=== PATIENT | female | born 1955 | race Caucasian/White ===

== ENCOUNTER 2016-11-19 09:45 | Inpatient (IN) | payer BC ==
[~2016-11-19 09:45] MED LIST: Acetaminophen/oxyCODONE 325-5 MG Tab PO PRN; Bisacodyl 5 MG Tab PO PRN; Lactated Ringers 1,000 ML IV SCH; Lidocaine 1%/Sod Bicarbonate in NS 8.4% 1 ML Syringe IV PRN; Morphine 2 MG/ML Syringe IVPUSH PRN; Ondansetron 4 MG/2 ML SDV IVPUSH PRN; Sennosides 8.6 MG Tab PO PRN; Sodium Chloride 0.9% 10 ML Syringe FLUSH PRN
--- NOTE | 2016-11-19 11:25 | PCM.PREANE ---
Preanesthetic Assessment - Physical Assessment NPO Status Date: 11/18/16 NPO Status Time: 22:00 O2 Sat by Pulse Oximetry: 95 Respiratory Rate: 16 Vital Signs: Last Vital Signs Temp 99.7 F 11/19/16 10:10 Pulse 80 11/19/16 10:10 Resp 16 11/19/16 10:10 BP 139/89 11/19/16 10:10 Pulse Ox 95 11/19/16 10:10 Height: 5 ft 3 in Weight: 173 kg - Lab Values: Laboratory Last Values MRSA (PCR) Negative 10/26/16 10:15 - Allergies Allergies/Adverse Reactions: Allergies Allergy/AdvReac Type Severity Reaction Status Date / Time No Known Allergies Allergy Verified 11/19/16 10:38 PreAnesthesia Questionnaire HEENT History: Reports: None Cardiovascular History: Reports: None Respiratory History: Reports: None Gastrointestinal History: Reports: None Genitourinary History: Reports: None 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: Musculoskeletal History: Reports: Back pain, chronic, Osteoarthritis Other Musculoskeletal History: Trauma to right hip Neurological History: Reports: None Psychiatric History: Reports: None Endocrine/Metabolic History: Reports: None, Obesity/BMI 30+ Hematologic History: Reports: None Immunologic History: Reports: None Oncologic (Cancer) History: Reports: None Dermatologic History: Reports: None - Infectious Disease History Infectious Disease History: Reports: None - Past Surgical History HEENT Surgical History: Reports: None Cardiovascular Surgical History: Reports: None Respiratory Surgical History: Reports: None GI Surgical History: Reports: None Female Surgical History: Reports: Tubal ligation Endocrine Surgical History: Reports: None Neurological Surgical History: Reports: None Musculoskeletal Surgical History: Reports: None, Other (see below) (dislocated hip anesthesia) Oncologic Surgical History: Reports: None Dermatological Surgical History: Reports: None - SUBSTANCE USE Smoking Status *Q: Never Smoker Tobacco Use Within Last Twelve Months: No Second Hand Smoke Exposure: No Days Per Week of Alcohol Use: 0 Recreational Drug Use History: No - HOME MEDS Home Medications: Home Meds Celecoxib [CeleBREX] 200 mg PO BID 11/16/16 [History] - CURRENT (IN HOUSE) MEDS Current Meds: Current Medications Bisacodyl (Dulcolax) 5 mg PO DAILY PRN PRN Reason: Constipation Morphine Sulfate 8 mg/Epinephrine HCl 0.3 mg/Cefuroxime Sodium 750 mg/Ketorolac Tromethamine 30 mg/Sodium Chloride 27.9 ml 0 mg .XX ONETIME ONE Stop: 11/19/16 12:01 Cyclobenzaprine HCl (Flexeril) 10 mg PO TID PRN PRN Reason: Spasms Docusate Sodium (Colace) 100 mg PO BID [facility] Famotidine (Pepcid) 20 mg IVPUSH Q12H [facility] Lactated Ringer's (Ringers, Lactated) 1,000 mls @ 125 mls/hr IV ASDIRECTED [facility] Last Admin: 11/19/16 10:30 Dose: 125 mls/hr Cefazolin Sodium/Dextrose 2 gm (/ Premix) 50 mls @ 100 mls/hr IV Q8H [facility] Stop: 11/19/16 23:29 Lidocaine/Sodium Bicarbonate (Buffered Lidocaine 1% In Ns 8.4%) 0.25 ml IV ONETIME PRN PRN Reason: Prior to IV Start Last Admin: 11/19/16 10:30 Dose: 0.25 ml Magnesium Hydroxide (Milk Of Magnesia) 30 ml PO BID PRN PRN Reason: Constipation Morphine Sulfate (Morphine) 2 mg IVPUSH Q2H PRN PRN Reason: Breakthrough Pain Multivitamins (Thera) 1 each PO WITHBREAKFAST [facility] Naloxone HCl (Narcan) 0.1 mg IVPUSH Q5M PRN PRN Reason: Oversedation Stop: 11/19/16 14:16 Ondansetron HCl (Zofran) 4 mg IVPUSH Q6H PRN PRN Reason: Nausea/Vomiting Oxycodone/Acetaminophen (Percocet 325-5 Mg) 1 - 2 tab PO Q4H PRN PRN Reason: Pain Rivaroxaban (Xarelto) 10 mg PO DAILY [facility] Senna (Senna) 8.6 mg PO BID PRN PRN Reason: Constipation Sodium Chloride (Saline Flush) 10 ml FLUSH ASDIRECTED PRN PRN Reason: Keep Vein Open Preanesthetic Assessment - ANESTHESIA/TRANSFUSION/FAMILY HX Anesthesia/Transfusion History: No Prior Transfusion(s), Prior Anesthesia (no prob) Family History of Anesthesia Reaction: No - REVIEW OF SYSTEMS Constitutional: Reports: no symptoms 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 Respiratory: Reports: no symptoms Cardiovascular: Reports: no symptoms GI: Reports: no symptoms Other: Reports: None - PHYSICAL ASSESSMENT O2 Sat by Pulse Oximetry: 95 RR: 16 Vital Signs: Last Vital Signs Temp 99.7 F 11/19/16 10:10 Pulse 80 11/19/16 10:10 Resp 16 11/19/16 10:10 BP 139/89 11/19/16 10:10 Pulse Ox 95 11/19/16 10:10 Height: 5 ft 3 in Weight: 78 kg NPO Status Date: 11/18/16 NPO Status Time: 22:00 ASA Class: 2 Mental Status: Alert & Oriented x3 Airway Class: Mallampati = 1 Dentition: Reports: Normal Dentition Thyro-Mental Finger Breadths: 3 Mouth Opening Finger Breadths: 3 ROM/Head Extension: Full Respiratory Status: lungs clear to auscultation bilaterally Cardiovascular Status: regular rate & rhythm, normal S1, S2, no murmur, blood pressure WNL - LAB Values: Laboratory Last Values MRSA (PCR) Negative 10/26/16 10:15 labs reviewed. Bun 25 - IMAGING/EKG Impressions: EKG SR HR 64 November 02 2016 - ALLERGIES Allergies/Adverse Reactions: Allergies Allergy/AdvReac Type Severity Reaction Status Date / Time No Known Allergies Allergy Verified 11/19/16 10:38 - BLOOD Blood Available: Yes - ANESTHESIA PLAN Preop Beta Lora: No Anesthesia Type Planned: Spinal - ACKNOWLEDGEMENTS Pt an Appropriate Candidate for the Planned Anesthesia: Yes Alternatives and Risks of Anesthesia Discussed w Pt/Guardian: Yes Pt/Guardian Understands and Agrees with Anesthesia Plan: Yes
[2016-11-19] MEDS ORDERED: Propofol 200 MG/20 ML SDV ONE ×3 (11:50→16:40)
[2016-11-19] MEDS ORDERED: fentaNYL 100 MCG/2 ML SDV ONE (11:50)
[2016-11-19] MEDS ORDERED: Midazolam 1 MG/ML 2 ML SDV ONE ×2 (11:50→14:53)
[2016-11-19] MEDS ORDERED: Lidocaine 1% 4 ML ONE (11:50)
[2016-11-19] MEDS ORDERED: Morphine PF 10 MG/10 ML SDV ONE (11:52)
[2016-11-19] MEDS ORDERED: ceFAZolin 1 GM Vial ONE (11:54)
[2016-11-19] MEDS ORDERED: Naloxone 0.4 MG/ML SDV IVPUSH PRN (14:00)
[2016-11-19] MEDS ORDERED: ePHEDrine/Normal Saline 25 MG/5 ML Syringe ONE (14:21)
[2016-11-19] MEDS ORDERED: Phenylephrine/Normal Saline 100 MCG/ML 10 ML Syringe ONE (14:27)
[2016-11-19] MEDS ORDERED: fentaNYL 100 MCG/2 ML SDV IVPUSH PRN (14:31)
[2016-11-19] MEDS ORDERED: diphenhydrAMINE 50 MG/ML SDV IVPUSH PRN (14:31)
[2016-11-19] MEDS ORDERED: Ondansetron 4 MG/2 ML SDV IVPUSH PRN (14:31)
[2016-11-19] MEDS ORDERED: Cyclobenzaprine 10 MG Tab PO PRN (15:00)
[2016-11-19] MEDS: Iodine/Sodium Iodide 2% Tincture 30 ML Bottle ONE ×2 (15:10→16:34)
[2016-11-19] MEDS: ceFAZolin 1 GM Vial ONE ×2 (15:10→16:38)
[2016-11-19] MEDS: Morphine 8 MG, EPINEPHrine 0.3 MG, Cefuroxime 750 MG, Ketorolac 30 MG, Sodium Chloride ... ONE ×15 (15:11→20:26)
[2016-11-19] MEDS: Bupivacaine 0.25% 30 ML SDV ONE ×2 (15:11→16:43)
--- NOTE | 2016-11-19 16:42 | PCM.OPNOTE ---
- General Post-Op/Procedure Note Date of Surgery/Procedure: 11/19/16 Operative Procedure(s): right total hip arthroplasty Pre Op Diagnosis: right hip osteoarthrosis Post-Op Diagnosis: Same Anesthesia Technique: Local, MAC, Spinal Primary Surgeon: Dae Jj Anesthesia Provider: Paige Sahu Pipe Line Gauger: Lurdes Camargo Pipe Line Gauger: Loren Felix EBGarcía in mLs: 800 Complications: None Condition: Good
--- NOTE | 2016-11-19 17:30 | PCM.POSTAN ---
POST ANESTHESIA ASSESSMENT - MENTAL STATUS Mental Status: alert, oriented - VITAL SIGNS Pulse Rate: 76 SaO2: 100 Resp Rate: 13 Blood Pressure: 95/70 Temperature: 97.5 F - RESPIRATORY Respiratory Status: respiratory rate WNL, airway patent, O2 saturation stable, supplemental oxygen - CARDIOVASCULAR CV Status: pulse rate WNL, blood pressure stable - GASTROINTESTINAL GI Status: no symptoms - PAIN Pain Score: 0 - POST OP HYDRATION Hydration Status: adequate & stable
[2016-11-19] MEDS ORDERED: ceFAZolin 2 GM in Premix Bag 1 BAG IV SCH (18:00)
--- NOTE | 2016-11-19 19:15 | PCM.CONSN ---
- General Info Date of Service: 11/19/16 Admission Dx/Problem (Free Text): 61 year old female post op right total hip arthroplasty, has a history of osteoarthritis. Complains of blurred vision after pain meds, feels that it is too strong. denies additional complaints at this time. Functional Status: Reports: pain controlled, tolerating diet, urinating - Review of Systems General: Reports: No Symptoms HEENT: Reports: no symptoms Pulmonary: Reports: no symptoms Cardiovascular: Reports: No Symptoms Gastrointestinal: Reports: No symptoms Genitourinary: Reports: no symptoms Musculoskeletal: Reports: no symptoms Skin: Reports: no symptoms Neurological: Reports: No Symptoms Psychiatric: Reports: no symptoms - Patient Data Vitals - most recent: Last Vital Signs Temp 36.0 C 11/19/16 18:39 Pulse 68 11/19/16 18:39 Resp 14 11/19/16 18:39 BP 98/68 11/19/16 18:39 Pulse Ox 98 11/19/16 18:39 Weight - most recent: 78.335 kg I&O - last 24 hours: Intake & Output 11/19/16 11/19/16 11/19/16 06:59 14:59 22:59 Intake Total 500 Output Total 50 Balance 450 Lab Results last 24 hrs: Laboratory Results - last 24 hr 11/19/16 Range/Units 10:27 Blood Type O POSITIVE Gel Antibody Screen Negative Jh Results last 24 hrs: Microbiology 11/19/16 14:50 Gram Stain - Final Hip, Right Med Orders - Current: Current Medications Bisacodyl (Dulcolax) 5 mg PO DAILY PRN PRN Reason: Constipation Cyclobenzaprine HCl (Flexeril) 10 mg PO TID PRN PRN Reason: Spasms Diphenhydramine HCl (Benadryl) 25 mg IVPUSH Q6H PRN PRN Reason: pruritis Stop: 11/19/16 20:00 Docusate Sodium (Colace) 100 mg PO BID [facility] Famotidine (Pepcid) 20 mg IVPUSH Q12H [facility] Cefazolin Sodium/Dextrose 2 gm (/ Premix) 50 mls @ 100 mls/hr IV Q8H [facility] Stop: 11/20/16 12:29 Magnesium Hydroxide (Milk Of Magnesia) 30 ml PO BID PRN PRN Reason: Constipation Morphine Sulfate (Morphine) 2 mg IVPUSH Q2H PRN PRN Reason: Breakthrough Pain Multivitamins (Thera) 1 each PO WITHBREAKFAST [facility] Ondansetron HCl (Zofran) 4 mg IVPUSH Q6H PRN PRN Reason: Nausea/Vomiting Oxycodone/Acetaminophen (Percocet 325-5 Mg) 1 - 2 tab PO Q4H PRN PRN Reason: Pain Rivaroxaban (Xarelto) 10 mg PO DAILY [facility] Senna (Senna) 8.6 mg PO BID PRN PRN Reason: Constipation Discontinued Medications Bupivacaine HCl (Marcaine 0.25%) Confirm Administered Dose 30 ml .ROUTE .STK- MED ONE Stop: 11/19/16 11:55 Last Admin: 11/19/16 16:43 Dose: 30 ml Cefazolin Sodium (Ancef) Confirm Administered Dose 2 gm .ROUTE .STK-MED ONE Stop: 11/19/16 11:47 Last Admin: 11/19/16 16:38 Dose: 2 gm Cefazolin Sodium (Ancef) Confirm Administered Dose 2 gm .ROUTE .STK-MED ONE Stop: 11/19/16 11:55 Morphine Sulfate 8 mg/Epinephrine HCl 0.3 mg/Cefuroxime Sodium 750 mg/Ketorolac Tromethamine 30 mg/Sodium Chloride 27.9 ml 0 mg .XX ONETIME ONE Stop: 11/19/16 12:01 Last Admin: 11/19/16 16:42 Dose: 788.3 mg Ephedrine Sulfate (Ephedrine In Ns) Confirm Administered Dose 25 mg .ROUTE .STK- MED ONE Stop: 11/19/16 14:22 Fentanyl (Sublimaze) Confirm Administered Dose 100 mcg .ROUTE .STK-MED ONE Stop: 11/19/16 11:51 Fentanyl (Sublimaze) 50 mcg IVPUSH Q5M PRN PRN Reason: Pain Stop: 11/19/16 20:00 Lactated Ringer's (Ringers, Lactated) 1,000 mls @ 125 mls/hr IV ASDIRECTED [facility] Stop: 11/19/16 23:00 Last Admin: 11/19/16 10:30 Dose: 125 mls/hr Cefazolin Sodium/Dextrose 2 gm (/ Premix) 50 mls @ 100 mls/hr IV Q8H [facility] Stop: 11/20/16 10:29 Lidocaine HCl (Xylocaine-Mpf 1%) Confirm Administered Dose 4 mls @ as directed .ROUTE .STK-MED ONE Stop: 11/19/16 11:51 Iodine (Iodine 2% Mild Tincture) Confirm Administered Dose 30 ml .ROUTE .STK- MED ONE Stop: 11/19/16 11:55 Last Admin: 11/19/16 16:34 Dose: 18 ml Lidocaine/Sodium Bicarbonate (Buffered Lidocaine 1% In Ns 8.4%) 0.25 ml IV ONETIME PRN PRN Reason: Prior to IV Start Stop: 11/19/16 18:00 Last Admin: 11/19/16 10:30 Dose: 0.25 ml Midazolam HCl (Versed 1 Mg/Ml) Confirm Administered Dose 2 mg .ROUTE .STK-MED ONE Stop: 11/19/16 11:51 Midazolam HCl (Versed 1 Mg/Ml) Confirm Administered Dose 2 mg .ROUTE .STK-MED ONE Stop: 11/19/16 14:54 Morphine Sulfate (Duramorph Pf) Confirm Administered Dose 10 mg .ROUTE .STK-MED ONE Stop: 11/19/16 11:53 Naloxone HCl (Narcan) 0.1 mg IVPUSH Q5M PRN PRN Reason: Oversedation Stop: 11/19/16 14:16 Ondansetron HCl (Zofran) 4 mg IVPUSH ONETIME PRN PRN Reason: Nausea/Vomiting Stop: 11/19/16 18:00 Phenylephrine HCl (Phenylephrine In Ns 100 Mcg/Ml) Confirm Administered Dose 1 mg .ROUTE .STK-MED ONE Stop: 11/19/16 14:28 Propofol (Diprivan 20 Ml) Confirm Administered Dose 200 mg .ROUTE .STK-MED ONE Stop: 11/19/16 11:51 Propofol (Diprivan 20 Ml) Confirm Administered Dose 400 mg .ROUTE .STK-MED ONE Stop: 11/19/16 14:51 Propofol (Diprivan 20 Ml) Confirm Administered Dose 200 mg .ROUTE .STK-MED ONE Stop: 11/19/16 16:41 Sodium Chloride (Saline Flush) 10 ml FLUSH ASDIRECTED PRN PRN Reason: Keep Vein Open Stop: 11/19/16 18:00 Tranexamic Acid (Cyklokapron) Confirm Administered Dose 1,000 mg .ROUTE .STK- MED ONE Stop: 11/19/16 11:55 Last Admin: 11/19/16 16:52 Dose: 1,000 mg - Exam Quality Assessment: urine catheter, DVT prophylaxis General: alert, oriented, cooperative, no acute distress HEENT: Pupils equal, Pupils reactive, EOMI Neck: supple, trachea midline Lungs: Normal respiratory effort Cardiovascular: Regular Rate, Regular Rhythm Abdomen: bowel sounds present, soft, no tenderness, no distension (Female) Exam: Deferred Back Exam: normal inspection Extremities: normal pulses Skin: warm Neurological: no new focal deficit, normal speech Psy/Mental Status: alert, normal affect, normal mood Consult PN Assessment/Plan POD#: 0 (1) Osteoarthritis SNOMED Code(s): 186688001 Code(s): M19.90 - UNSPECIFIED OSTEOARTHRITIS, UNSPECIFIED SITE Current Visit: Yes (2) Hyperlipidemia SNOMED Code(s): 26776611 Code(s): E78.5 - HYPERLIPIDEMIA, UNSPECIFIED Current Visit: Yes Problem List Initiated/Reviewed/Updated: Yes Plan: Impression: Traumatic hip injury, remote~2003 Right hip osteoarthritis S/P right total hip arthroplasty Plan: DVT/Pain mgt per ortho IVF Advance diet PT/OT consult ERIS, GURDEEP
[2016-11-19] MEDS: ceFAZolin 2 GM in Premix Bag 1 BAG IV SCH (20:43)
[2016-11-19] MEDS: Docusate Sodium 100 MG Cap PO SCH (20:43)
[2016-11-19] MEDS: Famotidine 20 MG/2 ML SDV IVPUSH SCH (20:43)
[2016-11-19] MEDS ORDERED: Magnesium Hydroxide 400 MG/5 ML Susp 30 ML Cup PO PRN (21:00)
[2016-11-20] MEDS: ceFAZolin 2 GM in Premix Bag 1 BAG IV SCH ×2 (04:26→11:33)
[2016-11-20] MEDS ORDERED: Multivitamins,Therapeutic Tab PO SCH (07:00)
--- NOTE | 2016-11-20 07:10 | CR ---
Pelvis and right hip: AP view of the pelvis was obtained as well as lateral view of the right hip. Recently placed right hip prosthesis is seen. Components are aligned. Heterotopic bone noted around the right hip as an incidental finding. Soft tissue air is noted around the right hip. Joint space within the left hip is preserved. No acute abnormality is seen. Impression: 1. Satisfactory appearance of recently placed right hip prosthesis. 2. Other incidental findings as noted above. Diagnostic code #2
--- NOTE | 2016-11-20 07:24 | PCM.CONSN ---
- General Info Date of Service: 11/20/16 Admission Dx/Problem (Free Text): POD #[address] Jj Doing well pain under fair control No N/V Hgb 9.4 this am Blurred vision resolved from yesterday Plans for dc home today Functional Status: Reports: pain controlled, tolerating diet, ambulating, urinating. Denies: new symptoms - Review of Systems General: Reports: No Symptoms HEENT: Reports: no symptoms Pulmonary: Reports: no symptoms Cardiovascular: Reports: No Symptoms Gastrointestinal: Reports: No symptoms Genitourinary: Reports: no symptoms Musculoskeletal: Reports: leg pain Skin: Reports: no symptoms Neurological: Reports: No Symptoms Psychiatric: Reports: no symptoms - Patient Data Vitals - most recent: Last Vital Signs Temp 97.3 F 11/20/16 04:08 Pulse 71 11/20/16 04:08 Resp 16 11/20/16 06:00 BP 116/46 L 11/20/16 04:08 Pulse Ox 99 11/20/16 04:08 Weight - most recent: 182 lb 9.6 oz I&O - last 24 hours: Intake & Output 11/19/16 11/20/16 11/20/16 22:59 06:59 14:59 Intake Total 740 950 Output Total 50 800 Balance 690 150 Lab Results last 24 hrs: Laboratory Results - last 24 hr 11/19/16 11/20/16 Range/Units 10:27 05:58 WBC 7.28 (3.98-10.04) K/mm3 RBC 3.25 L (3.98-5.22) M/mm3 Hgb 9.4 L (11.2-15.7) gm/L Hct 28.3 L (34.1-44.9) % MCV 87.1 (79.4-94.8) fl MCH 28.9 (25.6-32.2) pg MCHC 33.2 (32.2-35.5) g/dl RDW Std Deviation 37.8 (36.4-46.3) fL Plt Count 301 (182-369) K/mm3 MPV 9.5 (9.4-12.3) fl Neut % (Auto) 79.0 H (34.0-71.1) % Lymph % (Auto) 14.4 L (19.3-51.7) % [place] % (Auto) 5.9 (4.7-12.5) % Eos % (Auto) 0.4 L (0.7-5.8) Baso % (Auto) 0.3 (0.1-1.2) % Neut # (Auto) 5.75 (1.56-6.13) K/mm3 Lymph # (Auto) 1.05 L (1.18-3.74) K/mm3 [place] # (Auto) 0.43 H (0.24-0.36) K/mm3 Eos # (Auto) 0.03 L (0.04-0.36) K/mm3 Baso # (Auto) 0.02 (0.01-0.08) K/mm3 Blood Type O POSITIVE Gel Antibody Screen Negative Jh Results last 24 hrs: Microbiology 11/19/16 14:50 Gram Stain - Final Hip, Right Anaerobic Culture - Preliminary NO GROWTH AFTER 1 DAY Med Orders - Current: Current Medications Bisacodyl (Dulcolax) 5 mg PO DAILY PRN PRN Reason: Constipation Cyclobenzaprine HCl (Flexeril) 10 mg PO TID PRN PRN Reason: Spasms Docusate Sodium (Colace) 100 mg PO BID [facility] Last Admin: 11/19/16 20:43 Dose: 100 mg Famotidine (Pepcid) 20 mg IVPUSH Q12H [facility] Last Admin: 11/19/16 20:43 Dose: 20 mg Cefazolin Sodium/Dextrose 2 gm (/ Premix) 50 mls @ 100 mls/hr IV Q8H [facility] Stop: 11/20/16 12:29 Last Admin: 11/20/16 04:26 Dose: 100 mls/hr Magnesium Hydroxide (Milk Of Magnesia) 30 ml PO BID PRN PRN Reason: Constipation Morphine Sulfate (Morphine) 2 mg IVPUSH Q2H PRN PRN Reason: Breakthrough Pain Multivitamins (Thera) 1 each PO WITHBREAKFAST [facility] Last Admin: 11/20/16 06:01 Dose: 1 each Ondansetron HCl (Zofran) 4 mg IVPUSH Q6H PRN PRN Reason: Nausea/Vomiting Last Admin: 11/19/16 22:09 Dose: 4 mg Oxycodone/Acetaminophen (Percocet 325-5 Mg) 1 - 2 tab PO Q4H PRN PRN Reason: Pain Rivaroxaban (Xarelto) 10 mg PO DAILY [facility] Senna (Senna) 8.6 mg PO BID PRN PRN Reason: Constipation Discontinued Medications Bupivacaine HCl (Marcaine 0.25%) Confirm Administered Dose 30 ml .ROUTE .STK- MED ONE Stop: 11/19/16 11:55 Last Admin: 11/19/16 16:43 Dose: 30 ml Cefazolin Sodium (Ancef) Confirm Administered Dose 2 gm .ROUTE .STK-MED ONE Stop: 11/19/16 11:47 Last Admin: 11/19/16 16:38 Dose: 2 gm Cefazolin Sodium (Ancef) Confirm Administered Dose 2 gm .ROUTE .STK-MED ONE Stop: 11/19/16 11:55 Morphine Sulfate 8 mg/Epinephrine HCl 0.3 mg/Cefuroxime Sodium 750 mg/Ketorolac Tromethamine 30 mg/Sodium Chloride 27.9 ml 0 mg .XX ONETIME ONE Stop: 11/19/16 12:01 Last Admin: 11/19/16 20:26 Dose: Not Given Diphenhydramine HCl (Benadryl) 25 mg IVPUSH Q6H PRN PRN Reason: pruritis Stop: 11/19/16 20:00 Ephedrine Sulfate (Ephedrine In Ns) Confirm Administered Dose 25 mg .ROUTE .STK- MED ONE Stop: 11/19/16 14:22 Fentanyl (Sublimaze) Confirm Administered Dose 100 mcg .ROUTE .STK-MED ONE Stop: 11/19/16 11:51 Fentanyl (Sublimaze) 50 mcg IVPUSH Q5M PRN PRN Reason: Pain Stop: 11/19/16 20:00 Lactated Ringer's (Ringers, Lactated) 1,000 mls @ 125 mls/hr IV ASDIRECTED [facility] Stop: 11/19/16 23:00 Last Admin: 11/19/16 10:30 Dose: 125 mls/hr Cefazolin Sodium/Dextrose 2 gm (/ Premix) 50 mls @ 100 mls/hr IV Q8H [facility] Stop: 11/20/16 10:29 Last Admin: 11/19/16 20:28 Dose: Not Given Lidocaine HCl (Xylocaine-Mpf 1%) Confirm Administered Dose 4 mls @ as directed .ROUTE .STK-MED ONE Stop: 11/19/16 11:51 Iodine (Iodine 2% Mild Tincture) Confirm Administered Dose 30 ml .ROUTE .STK- MED ONE Stop: 11/19/16 11:55 Last Admin: 11/19/16 16:34 Dose: 18 ml Lidocaine/Sodium Bicarbonate (Buffered Lidocaine 1% In Ns 8.4%) 0.25 ml IV ONETIME PRN PRN Reason: Prior to IV Start Stop: 11/19/16 18:00 Last Admin: 11/19/16 10:30 Dose: 0.25 ml Midazolam HCl (Versed 1 Mg/Ml) Confirm Administered Dose 2 mg .ROUTE .STK-MED ONE Stop: 11/19/16 11:51 Midazolam HCl (Versed 1 Mg/Ml) Confirm Administered Dose 2 mg .ROUTE .STK-MED ONE Stop: 11/19/16 14:54 Morphine Sulfate (Duramorph Pf) Confirm Administered Dose 10 mg .ROUTE .STK-MED ONE Stop: 11/19/16 11:53 Naloxone HCl (Narcan) 0.1 mg IVPUSH Q5M PRN PRN Reason: Oversedation Stop: 11/19/16 14:16 Ondansetron HCl (Zofran) 4 mg IVPUSH ONETIME PRN PRN Reason: Nausea/Vomiting Stop: 11/19/16 18:00 Phenylephrine HCl (Phenylephrine In Ns 100 Mcg/Ml) Confirm Administered Dose 1 mg .ROUTE .STK-MED ONE Stop: 11/19/16 14:28 Propofol (Diprivan 20 Ml) Confirm Administered Dose 200 mg .ROUTE .STK-MED ONE Stop: 11/19/16 11:51 Propofol (Diprivan 20 Ml) Confirm Administered Dose 400 mg .ROUTE .STK-MED ONE Stop: 11/19/16 14:51 Propofol (Diprivan 20 Ml) Confirm Administered Dose 200 mg .ROUTE .STK-MED ONE Stop: 11/19/16 16:41 Sodium Chloride (Saline Flush) 10 ml FLUSH ASDIRECTED PRN PRN Reason: Keep Vein Open Stop: 11/19/16 18:00 Tranexamic Acid (Cyklokapron) Confirm Administered Dose 1,000 mg .ROUTE .STK- MED ONE Stop: 11/19/16 11:55 Last Admin: 11/19/16 16:52 Dose: 1,000 mg - Exam Quality Assessment: DVT prophylaxis General: alert, oriented, cooperative, no acute distress HEENT: Pupils equal, Pupils reactive, EOMI, Mucous membr. moist/pink Neck: supple Lungs: Clear to auscultation, Normal respiratory effort Cardiovascular: Regular Rate, Regular Rhythm Abdomen: bowel sounds present, soft, no tenderness (Female) Exam: Deferred Extremities: no edema Peripheral Pulses: 1+: dorsalis pedis (L), dorsalis pedis (R) Skin: warm, dry, intact Neurological: no new focal deficit Psy/Mental Status: alert, normal affect, normal mood Consult PN Assessment/Plan POD#: 1 (1) S/P total hip arthroplasty SNOMED Code(s): 418880324309, 291909847679 Code(s): Z96.649 - PRESENCE OF UNSPECIFIED ARTIFICIAL HIP JOINT Priority: High Current Visit: Yes Qualifiers: Laterality: right Qualified Code(s): Z96.641 - Presence of right artificial hip joint (2) Osteoarthritis SNOMED Code(s): 846209559 Code(s): M19.90 - UNSPECIFIED OSTEOARTHRITIS, UNSPECIFIED SITE Priority: High Current Visit: Yes Qualifiers: Osteoarthritis location: hip Osteoarthritis type: post-traumatic Laterality: right Qualified Code(s): M16.51 - Unilateral post-traumatic osteoarthritis, right hip (3) Hyperlipidemia SNOMED Code(s): 01655093 Code(s): E78.5 - HYPERLIPIDEMIA, UNSPECIFIED Priority: Medium Current Visit: No Qualifiers: Hyperlipidemia type: unspecified Qualified Code(s): E78.5 - Hyperlipidemia , unspecified Problem List Initiated/Reviewed/Updated: Yes Plan: POD #1 Rt Total Hip Arthroplasty -Pain managment and DVT prophylax per primary team/Ortho -PT/OT -Doing well thus far -Hgb 9.4 this am Other chronic conditions: HLD GI prophylax Plans for DC home today; ok from Hospitalist standpoint for dc home today.
[2016-11-20] MEDS ORDERED: Flu Vaccine 2016-17(36Mos+)/PF 60 MCG/0.5 ML Syringe IM ONE (07:59)
[2016-11-20] MEDS: Famotidine 20 MG/2 ML SDV IVPUSH SCH (08:06)
[2016-11-20] MEDS: Docusate Sodium 100 MG Cap PO SCH (08:07)
[2016-11-20] MEDS ORDERED: Rivaroxaban 10 MG Tab PO SCH (09:00)
--- NOTE | 2016-11-20 10:17 | PCM48HPAN ---
Post Anesthesia Note - EVALUATION WITHIN 48HRS OF ANESTHETIC Vital Signs in Normal Range: Yes Patient Participated in Evaluation: Yes Respiratory Function Stable: Yes Airway Patent: Yes Cardiovascular Function Stable: Yes Hydration Status Stable: Yes Pain Control Satisfactory: Yes Nausea and Vomiting Control Satisfactory: Yes Mental Status Recovered: Yes - COMMENTS/OBSERVATIONS Free Text/Narrative:: Doing well. Some nausea yesterday and today. Feels good now. Not much pain last night or today.
[2016-11-20 12:32] VITALS: BP 102/61
--- NOTE | 2016-11-20 13:32 | PCM.SURGPN ---
- General Info Date of Service: 11/20/16 POD#: 1 Functional Status: Reports: pain controlled, tolerating diet, ambulating, urinating. Denies: new symptoms - Review of Systems Musculoskeletal: Reports: other (The pt reports less pain today than before surgery.) - Patient Data Vitals - most recent: Last Vital Signs Temp 98.1 F 11/20/16 12:27 Pulse 79 11/20/16 12:27 Resp 18 11/20/16 12:27 BP 102/61 11/20/16 12:27 Pulse Ox 93 L 11/20/16 12:27 Weight - most recent: 182 lb 9.6 oz I&O - last 24 hours: Intake & Output 11/19/16 11/20/16 11/20/16 22:59 06:59 14:59 Intake Total 740 950 330 Output Total 425 800 Balance 315 150 330 Lab Results last 24 hrs: Laboratory Results - last 24 hr 11/20/16 11/20/16 Range/Units 05:58 05:58 WBC 7.28 (3.98-10.04) K/mm3 RBC 3.25 L (3.98-5.22) M/mm3 Hgb 9.4 L (11.2-15.7) gm/L Hct 28.3 L (34.1-44.9) % MCV 87.1 (79.4-94.8) fl MCH 28.9 (25.6-32.2) pg MCHC 33.2 (32.2-35.5) g/dl RDW Std Deviation 37.8 (36.4-46.3) fL Plt Count 301 (182-369) K/mm3 MPV 9.5 (9.4-12.3) fl Neut % (Auto) 79.0 H (34.0-71.1) % Lymph % (Auto) 14.4 L (19.3-51.7) % [place] % (Auto) 5.9 (4.7-12.5) % Eos % (Auto) 0.4 L (0.7-5.8) Baso % (Auto) 0.3 (0.1-1.2) % Neut # (Auto) 5.75 (1.56-6.13) K/mm3 Lymph # (Auto) 1.05 L (1.18-3.74) K/mm3 [place] # (Auto) 0.43 H (0.24-0.36) K/mm3 Eos # (Auto) 0.03 L (0.04-0.36) K/mm3 Baso # (Auto) 0.02 (0.01-0.08) K/mm3 Sodium 143 (136-145) mEq/L Potassium 4.1 (3.5-5.1) mEq/L Chloride 107 (98-107) mEq/L Carbon Dioxide 29 (21-32) mEq/L Anion Gap 11.1 (5-15) BUN 15 (7-18) mg/dL Creatinine 0.8 (0.55-1.02) mg/dL Est Cr Clr Drug Dosing 59.54 mL/min Estimated GFR (MDRD) > 60 (>60) mL/min BUN/Creatinine Ratio 18.8 H (14-18) Glucose 119 H (80-115) mg/dL Calcium 8.1 L (8.5-10.1) mg/dL Total Bilirubin 0.4 (0.2-1.0) mg/dL AST 17 (15-37) U/L ALT 16 (14-59) U/L Alkaline Phosphatase 74 (46-116) U/L Total Protein 5.5 L (6.4-8.2) g/dl Albumin 2.8 L (3.4-5.0) g/dl Globulin 2.7 gm/dL Albumin/Globulin Ratio 1.0 (1-2) Jh Results last 24 hrs: Microbiology 11/19/16 14:50 Gram Stain - Final Hip, Right Anaerobic Culture - Preliminary NO GROWTH AFTER 1 DAY Med Orders - Current: Current Medications Bisacodyl (Dulcolax) 5 mg PO DAILY PRN PRN Reason: Constipation Cyclobenzaprine HCl (Flexeril) 10 mg PO TID PRN PRN Reason: Spasms Docusate Sodium (Colace) 100 mg PO BID [facility] Last Admin: 11/20/16 08:07 Dose: 100 mg Famotidine (Pepcid) 20 mg IVPUSH Q12H [facility] Last Admin: 11/20/16 08:06 Dose: 20 mg Magnesium Hydroxide (Milk Of Magnesia) 30 ml PO BID PRN PRN Reason: Constipation Morphine Sulfate (Morphine) 2 mg IVPUSH Q2H PRN PRN Reason: Breakthrough Pain Multivitamins (Thera) 1 each PO WITHBREAKFAST [facility] Last Admin: 11/20/16 06:01 Dose: 1 each Ondansetron HCl (Zofran) 4 mg IVPUSH Q6H PRN PRN Reason: Nausea/Vomiting Last Admin: 11/19/16 22:09 Dose: 4 mg Oxycodone/Acetaminophen (Percocet 325-5 Mg) 1 - 2 tab PO Q4H PRN PRN Reason: Pain Last Admin: 11/20/16 08:07 Dose: 1 tab Rivaroxaban (Xarelto) 10 mg PO DAILY [facility] Last Admin: 11/20/16 08:06 Dose: 10 mg Senna (Senna) 8.6 mg PO BID PRN PRN Reason: Constipation Discontinued Medications Bupivacaine HCl (Marcaine 0.25%) Confirm Administered Dose 30 ml .ROUTE .STK- MED ONE Stop: 11/19/16 11:55 Last Admin: 11/19/16 16:43 Dose: 30 ml Cefazolin Sodium (Ancef) Confirm Administered Dose 2 gm .ROUTE .STK-MED ONE Stop: 11/19/16 11:47 Last Admin: 11/19/16 16:38 Dose: 2 gm Cefazolin Sodium (Ancef) Confirm Administered Dose 2 gm .ROUTE .STK-MED ONE Stop: 11/19/16 11:55 Morphine Sulfate 8 mg/Epinephrine HCl 0.3 mg/Cefuroxime Sodium 750 mg/Ketorolac Tromethamine 30 mg/Sodium Chloride 27.9 ml 0 mg .XX ONETIME ONE Stop: 11/19/16 12:01 Last Admin: 11/19/16 20:26 Dose: Not Given Diphenhydramine HCl (Benadryl) 25 mg IVPUSH Q6H PRN PRN Reason: pruritis Stop: 11/19/16 20:00 Ephedrine Sulfate (Ephedrine In Ns) Confirm Administered Dose 25 mg .ROUTE .STK- MED ONE Stop: 11/19/16 14:22 Fentanyl (Sublimaze) Confirm Administered Dose 100 mcg .ROUTE .STK-MED ONE Stop: 11/19/16 11:51 Fentanyl (Sublimaze) 50 mcg IVPUSH Q5M PRN PRN Reason: Pain Stop: 11/19/16 20:00 Lactated Ringer's (Ringers, Lactated) 1,000 mls @ 125 mls/hr IV ASDIRECTED [facility] Stop: 11/19/16 23:00 Last Admin: 11/19/16 10:30 Dose: 125 mls/hr Cefazolin Sodium/Dextrose 2 gm (/ Premix) 50 mls @ 100 mls/hr IV Q8H [facility] Stop: 11/20/16 10:29 Last Admin: 11/19/16 20:28 Dose: Not Given Lidocaine HCl (Xylocaine-Mpf 1%) Confirm Administered Dose 4 mls @ as directed .ROUTE .STK-MED ONE Stop: 11/19/16 11:51 Cefazolin Sodium/Dextrose 2 gm (/ Premix) 50 mls @ 100 mls/hr IV Q8H [facility] Stop: 11/20/16 12:29 Last Admin: 11/20/16 11:33 Dose: 100 mls/hr Influenza Virus Vaccine (Fluzone/Fluarix Vaccine) 60 mcg IM .ONCE ONE Stop: 11/20/16 08:00 Last Admin: 11/20/16 11:42 Dose: Not Given Iodine (Iodine 2% Mild Tincture) Confirm Administered Dose 30 ml .ROUTE .STK- MED ONE Stop: 11/19/16 11:55 Last Admin: 11/19/16 16:34 Dose: 18 ml Lidocaine/Sodium Bicarbonate (Buffered Lidocaine 1% In Ns 8.4%) 0.25 ml IV ONETIME PRN PRN Reason: Prior to IV Start Stop: 11/19/16 18:00 Last Admin: 11/19/16 10:30 Dose: 0.25 ml Midazolam HCl (Versed 1 Mg/Ml) Confirm Administered Dose 2 mg .ROUTE .STK-MED ONE Stop: 11/19/16 11:51 Midazolam HCl (Versed 1 Mg/Ml) Confirm Administered Dose 2 mg .ROUTE .STK-MED ONE Stop: 11/19/16 14:54 Morphine Sulfate (Duramorph Pf) Confirm Administered Dose 10 mg .ROUTE .STK-MED ONE Stop: 11/19/16 11:53 Naloxone HCl (Narcan) 0.1 mg IVPUSH Q5M PRN PRN Reason: Oversedation Stop: 11/19/16 14:16 Ondansetron HCl (Zofran) 4 mg IVPUSH ONETIME PRN PRN Reason: Nausea/Vomiting Stop: 11/19/16 18:00 Phenylephrine HCl (Phenylephrine In Ns 100 Mcg/Ml) Confirm Administered Dose 1 mg .ROUTE .STK-MED ONE Stop: 11/19/16 14:28 Propofol (Diprivan 20 Ml) Confirm Administered Dose 200 mg .ROUTE .STK-MED ONE Stop: 11/19/16 11:51 Propofol (Diprivan 20 Ml) Confirm Administered Dose 400 mg .ROUTE .STK-MED ONE Stop: 11/19/16 14:51 Propofol (Diprivan 20 Ml) Confirm Administered Dose 200 mg .ROUTE .STK-MED ONE Stop: 11/19/16 16:41 Sodium Chloride (Saline Flush) 10 ml FLUSH ASDIRECTED PRN PRN Reason: Keep Vein Open Stop: 11/19/16 18:00 Tranexamic Acid (Cyklokapron) Confirm Administered Dose 1,000 mg .ROUTE .STK- MED ONE Stop: 11/19/16 11:55 Last Admin: 11/19/16 16:52 Dose: 1,000 mg - Exam Wound/Incisions: dressing dry and intact General: alert, cooperative, no acute distress Lungs: Normal respiratory effort Extremities: normal pulses, no calf tenderness (Right thigh soft, nontender, eccymotic. NVS intact for BLE. Bhavna's negative.) - Problem List Review Problem List Initiated/Reviewed/Updated: Yes - My Orders Last 24 Hours: Active Orders 24 hr Category Date Time Status Communication Order [RC] ASDIRECTED Care 11/19/16 14:31 Active Communication Order [RC] ROUTINE Care 11/19/16 14:31 Active Notify Provider [RC] ASDIRECTED Care 11/19/16 14:31 Active Oxygen Therapy [RC] ASDIRECTED Care 11/19/16 14:31 Active Pulse Oximetry [RC] ASDIRECTED Care 11/19/16 14:31 Active Ready for Discharge [RC] PER UNIT ROUTINE Care 11/20/16 06:47 Active Regular Diet [DIET] Diet 11/19/16 Dinner Active CULTURE ANAEROBIC + SMEAR [RM] Stat Lab 11/19/16 14:50 Results Cyclobenzaprine [Flexeril] Med 11/19/16 15:00 Active 10 mg PO TID PRN Docusate Sodium [Colace] Med 11/19/16 21:00 Active 100 mg PO BID Famotidine [Pepcid] Med 11/19/16 21:00 Active 20 mg IVPUSH Q12H Magnesium Hydroxide [Milk of Magnesia] Med 11/19/16 21:00 Active 30 ml PO BID PRN Multivitamins,Therapeutic [Thera] Med 11/20/16 07:00 Active 1 each PO WITHBREAKFAST Rivaroxaban [Xarelto] Med 11/20/16 09:00 Active 10 mg PO DAILY Pulse Oximetry Continuous Monitoring [OM.PC] Routine Oth 11/19/16 14:31 Active Medication Orders Bisacodyl (Dulcolax) 5 mg PO DAILY PRN PRN Reason: Constipation Cyclobenzaprine HCl (Flexeril) 10 mg PO TID PRN PRN Reason: Spasms Docusate Sodium (Colace) 100 mg PO BID [facility] Last Admin: 11/20/16 08:07 Dose: 100 mg Admin: 11/19/16 20:43 Dose: 100 mg Famotidine (Pepcid) 20 mg IVPUSH Q12H [facility] Last Admin: 11/20/16 08:06 Dose: 20 mg Admin: 11/19/16 20:43 Dose: 20 mg Magnesium Hydroxide (Milk Of Magnesia) 30 ml PO BID PRN PRN Reason: Constipation Morphine Sulfate (Morphine) 2 mg IVPUSH Q2H PRN PRN Reason: Breakthrough Pain Multivitamins (Thera) 1 each PO WITHBREAKFAST [facility] Last Admin: 11/20/16 06:01 Dose: 1 each Ondansetron HCl (Zofran) 4 mg IVPUSH Q6H PRN PRN Reason: Nausea/Vomiting Last Admin: 11/19/16 22:09 Dose: 4 mg Oxycodone/Acetaminophen (Percocet 325-5 Mg) 1 - 2 tab PO Q4H PRN PRN Reason: Pain Last Admin: 11/20/16 08:07 Dose: 1 tab Rivaroxaban (Xarelto) 10 mg PO DAILY [facility] Last Admin: 11/20/16 08:06 Dose: 10 mg Senna (Senna) 8.6 mg PO BID PRN PRN Reason: Constipation - Assessment Assessment (Free Text/Narrative):: POD#1 - right MICHAEL - Plan Plan (Free Text/Narrative):: 1. Xarelto, frequent mobility, TEDs. 2. MICHAEL precautions. Outpatient therapy. 3. Medical management per Hospitalist service. The pt's case was discussed with Dr. Jj today.
--- NOTE | 2016-11-23 07:05 | PCM.DCSUM1 ---
Discharge Summary - Hospital Course Brief History: Joanie is a 61 yo female who underwent right MICHAEL with Dr. Jj on 11-19-2016. The procedure was completed under spinal anesthesia. The pt tolerated the procedure well and was admitted to the Medical-Surgical Unit. Medical management was provided by the Hospitalist service. The pt's Hospital course was uneventful. The pt's Hgb on POD#1 was 9.4. On POD#1, Xarelto was initiated for VTE prophylaxis and the pt was prescribed a 35-day course. SCDs and TEDs were also used. A Mepilex dressing was placed at the incision site at the time of surgery and remained clean and dry. The pt participated in P.T. and O.T. and progressed well. She followed the MICHAEL precautions and used a FWW for mobility. The pt was allowed to WBAT. On POD#1, the pt was deemed appropriate to discharge to home with her family. - Discharge Data Discharge Date: 11/20/16 Discharge Disposition: Home, Self-Care 01 Condition: Good - Patient Summary/Data Operative Procedure(s) Performed: right total hip arthroplasty Consults: Consultations 11/19/16 06:59 Consult to Case Management [CONS] Routine Consult to Physician [CONS] Routine OT Evaluation and Treatment [CONS] Routine 11/19/16 07:03 PT Evaluation and Treatment [CONS] Routine - Patient Instructions Diet: Usual Diet as Tolerated Activity: Apply Ice, As Tolerated, Elevate Extremity, Full Weight Bearing Driving: Do Not Drive Showering/Bathing: May Shower Wound/Incision Care: Keep Operative Site/Wound Site Clean and Dry, Do NOT Change Dressing Notify Provider of: Fever, Increased Pain, Swelling and Redness, Drainage, Nausea and/or Vomiting Other/Special Instructions: Please get up and moving around every hour while awake. This helps to prevent blood clots. Please take the Xarelto, blood thinner medication daily. Please wear the KAVITA hose during the day and you may remove them at night. Please schedule for P.T. Complete the P.T. exercises that were instructed in the Hospital. Please use the pain medication as needed. The medication may cause drowsiness and/or constipation. You could use a stool softener like docusate sodium or Colace 100mg twice daily and/or a laxative like polyethylene glycol or Miralax daily for constipation. Contact your primary care provider for further instructions if you are constipated. Please schedule an appointment with your primary care provider for 'routine post -op care'. Use the incentive spirometer often. Please place ice to the hip often. Please follow the hip precautions. Place a towel between your skin and the blue cooling pad. Please elevate the limb to decrease swelling. Keep the Mepilex dressing in place until follow-up. Notify the Clinic if the dressing becomes saturated. Please call [phone] with questions or concerns. - Discharge Plan Prescriptions/Med Rec: Acetaminophen/oxyCODONE [Percocet 325-5 MG] 1 - 2 tab PO Q4H PRN #60 tablet PRN Reason: Pain Cyclobenzaprine [Flexeril] 10 mg PO TID PRN #20 tablet PRN Reason: Spasms Rivaroxaban [Xarelto] 10 mg PO DAILY #34 tablet Home Medications: Home Meds Acetaminophen/oxyCODONE [Percocet 325-5 MG] 1 - 2 tab PO Q4H PRN #60 tablet [Rx] Bisacodyl [Dulcolax] 5 mg PO DAILY PRN #0 tablet 11/20/16 [Rx] Cyclobenzaprine [Flexeril] 10 mg PO TID PRN #20 tablet 11/20/16 [Rx] Docusate Sodium [Colace] 100 mg PO BID cap 11/20/16 [Rx] Magnesium Hydroxide [Milk of Magnesia] 30 ml PO BID PRN #0 cup 11/20/16 [Rx] Multivitamins,Therapeutic [Thera] 1 each PO WITHBREAKFAST tablet 11/20/16 [Rx] Rivaroxaban [Xarelto] 10 mg PO DAILY #34 tablet 11/20/16 [Rx] Sennosides [Senna] 8.6 mg PO BID PRN #0 tablet 11/20/16 [Rx] Patient Handouts: Total Hip Replacement, [id number], Hip Rehabilitation After Surgery, Total Hip Replacement, Care After, [id number] Referrals: Lurdes Camargo PA-C [Physician Coordinator Of Evaluation] - (Please see Lurdes Camargo on Saturday at 12:30 PM on 11/27/16.) - Patient Data Vitals - Most Recent: Last Vital Signs Temp 98.1 F 11/20/16 12:27 Pulse 79 11/20/16 12:27 Resp 18 11/20/16 12:27 BP 102/61 11/20/16 12:27 Pulse Ox 93 L 11/20/16 12:27 Weight - Most Recent: 182 lb 9.6 oz GARCIA Results - Last 24 hrs: Microbiology 11/19/16 14:50 Gram Stain - Final Hip, Right Anaerobic Culture - Preliminary NO GROWTH AFTER 3 DAYS Med Orders - Current: Current Medications Discontinued Medications Bisacodyl (Dulcolax) 5 mg PO DAILY PRN PRN Reason: Constipation Bupivacaine HCl (Marcaine 0.25%) Confirm Administered Dose 30 ml .ROUTE .STK- MED ONE Stop: 11/19/16 11:55 Last Admin: 11/19/16 16:43 Dose: 30 ml Cefazolin Sodium (Ancef) Confirm Administered Dose 2 gm .ROUTE .STK-MED ONE Stop: 11/19/16 11:47 Last Admin: 11/19/16 16:38 Dose: 2 gm Cefazolin Sodium (Ancef) Confirm Administered Dose 2 gm .ROUTE .STK-MED ONE Stop: 11/19/16 11:55 Morphine Sulfate 8 mg/Epinephrine HCl 0.3 mg/Cefuroxime Sodium 750 mg/Ketorolac Tromethamine 30 mg/Sodium Chloride 27.9 ml 0 mg .XX ONETIME ONE Stop: 11/19/16 12:01 Last Admin: 11/19/16 20:26 Dose: Not Given Cyclobenzaprine HCl (Flexeril) 10 mg PO TID PRN PRN Reason: Spasms Diphenhydramine HCl (Benadryl) 25 mg IVPUSH Q6H PRN PRN Reason: pruritis Stop: 11/19/16 20:00 Docusate Sodium (Colace) 100 mg PO BID [facility] Last Admin: 11/20/16 08:07 Dose: 100 mg Ephedrine Sulfate (Ephedrine In Ns) Confirm Administered Dose 25 mg .ROUTE .STK- MED ONE Stop: 11/19/16 14:22 Famotidine (Pepcid) 20 mg IVPUSH Q12H [facility] Last Admin: 11/20/16 08:06 Dose: 20 mg Fentanyl (Sublimaze) Confirm Administered Dose 100 mcg .ROUTE .STK-MED ONE Stop: 11/19/16 11:51 Fentanyl (Sublimaze) 50 mcg IVPUSH Q5M PRN PRN Reason: Pain Stop: 11/19/16 20:00 Lactated Ringer's (Ringers, Lactated) 1,000 mls @ 125 mls/hr IV ASDIRECTED [facility] Stop: 11/19/16 23:00 Last Admin: 11/19/16 10:30 Dose: 125 mls/hr Cefazolin Sodium/Dextrose 2 gm (/ Premix) 50 mls @ 100 mls/hr IV Q8H [facility] Stop: 11/20/16 10:29 Last Admin: 11/19/16 20:28 Dose: Not Given Lidocaine HCl (Xylocaine-Mpf 1%) Confirm Administered Dose 4 mls @ as directed .ROUTE .STK-MED ONE Stop: 11/19/16 11:51 Cefazolin Sodium/Dextrose 2 gm (/ Premix) 50 mls @ 100 mls/hr IV Q8H [facility] Stop: 11/20/16 12:29 Last Admin: 11/20/16 11:33 Dose: 100 mls/hr Influenza Virus Vaccine (Fluzone/Fluarix Vaccine) 60 mcg IM .ONCE ONE Stop: 11/20/16 08:00 Last Admin: 11/20/16 11:42 Dose: Not Given Iodine (Iodine 2% Mild Tincture) Confirm Administered Dose 30 ml .ROUTE .STK- MED ONE Stop: 11/19/16 11:55 Last Admin: 11/19/16 16:34 Dose: 18 ml Lidocaine/Sodium Bicarbonate (Buffered Lidocaine 1% In Ns 8.4%) 0.25 ml IV ONETIME PRN PRN Reason: Prior to IV Start Stop: 11/19/16 18:00 Last Admin: 11/19/16 10:30 Dose: 0.25 ml Magnesium Hydroxide (Milk Of Magnesia) 30 ml PO BID PRN PRN Reason: Constipation Midazolam HCl (Versed 1 Mg/Ml) Confirm Administered Dose 2 mg .ROUTE .STK-MED ONE Stop: 11/19/16 11:51 Midazolam HCl (Versed 1 Mg/Ml) Confirm Administered Dose 2 mg .ROUTE .STK-MED ONE Stop: 11/19/16 14:54 Morphine Sulfate (Morphine) 2 mg IVPUSH Q2H PRN PRN Reason: Breakthrough Pain Morphine Sulfate (Duramorph Pf) Confirm Administered Dose 10 mg .ROUTE .STK-MED ONE Stop: 11/19/16 11:53 Multivitamins (Thera) 1 each PO WITHBREAKFAST [facility] Last Admin: 11/20/16 06:01 Dose: 1 each Naloxone HCl (Narcan) 0.1 mg IVPUSH Q5M PRN PRN Reason: Oversedation Stop: 11/19/16 14:16 Ondansetron HCl (Zofran) 4 mg IVPUSH Q6H PRN PRN Reason: Nausea/Vomiting Last Admin: 11/19/16 22:09 Dose: 4 mg Ondansetron HCl (Zofran) 4 mg IVPUSH ONETIME PRN PRN Reason: Nausea/Vomiting Stop: 11/19/16 18:00 Oxycodone/Acetaminophen (Percocet 325-5 Mg) 1 - 2 tab PO Q4H PRN PRN Reason: Pain Last Admin: 11/20/16 08:07 Dose: 1 tab Phenylephrine HCl (Phenylephrine In Ns 100 Mcg/Ml) Confirm Administered Dose 1 mg .ROUTE .STK-MED ONE Stop: 11/19/16 14:28 Propofol (Diprivan 20 Ml) Confirm Administered Dose 200 mg .ROUTE .STK-MED ONE Stop: 11/19/16 11:51 Propofol (Diprivan 20 Ml) Confirm Administered Dose 400 mg .ROUTE .STK-MED ONE Stop: 11/19/16 14:51 Propofol (Diprivan 20 Ml) Confirm Administered Dose 200 mg .ROUTE .STK-MED ONE Stop: 11/19/16 16:41 Rivaroxaban (Xarelto) 10 mg PO DAILY [facility] Last Admin: 11/20/16 08:06 Dose: 10 mg Senna (Senna) 8.6 mg PO BID PRN PRN Reason: Constipation Sodium Chloride (Saline Flush) 10 ml FLUSH ASDIRECTED PRN PRN Reason: Keep Vein Open Stop: 11/19/16 18:00 Tranexamic Acid (Cyklokapron) Confirm Administered Dose 1,000 mg .ROUTE .STK- MED ONE Stop: 11/19/16 11:55 Last Admin: 11/19/16 16:52 Dose: 1,000 mg *Q Meaningful Use (DIS) - VTE *Q VTE Criteria *Q: - Stroke *Q Stroke Criteria *Q: - AMI *Q AMI Criteria *Q:
--- NOTE | 2016-11-25 21:55 | OR ---
DATE OF OPERATION: 11/19/2016 SURGEON: Dae Jj MD OPERATION PERFORMED: Right total hip arthroplasty. PREOPERATIVE DIAGNOSIS: Right hip osteoarthrosis. POSTOPERATIVE DIAGNOSIS: Right hip osteoarthrosis. ANESTHESIA TECHNIQUE: Local MAC with spinal. ANESTHESIA PROVIDER: Paige Sahu CRNA. ASSISTANTS: Lurdes Camargo PA-C and Loren Felix LPN. ESTIMATED BLOOD LOSS: 800 mL. COMPLICATIONS: None. CONDITION: Stable. DESCRIPTION OF PROCEDURE: The patient was identified in the preop holding area. Proper site was marked and identified by the surgeon. The patient was taken back to the operating theater. After adequate anesthesia, the patient was placed in left lateral decubitus position. All bony prominences were well padded. PEGs were then placed and well padded. The patient's gluteal fold was found to be parallel to the floor. At this time, the right hip was then sterilely prepped and draped in the usual sterile fashion. OR time-out was performed. The patient received 2 g IV Ancef. At this time, incision was made and centered over the greater trochanter for posterior approach. Hence, was taken down to the IT band and gluteal fascia, which was incised along its length. The Charnley retractor was then placed. Short external rotators were then identified. 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 At this time, short external rotators were then taken down. Capsulotomy was performed. Hip was then dislocated. Neck cut was then completed. At this time, attention was then turned to the acetabulum. Anterior and posterior acetabular retractors were placed along with inferior acetabular retractor. The patient was noted to have significant amount of scar tissue from previous trauma. At this time, the scar tissue along with pulvinar was then removed along with any labrum. At this time, starting with a 45 reamer, I was able to ream up to a 51 for a 52 mm cup. The trial was found to be stable. At this time, it was decided that we would use MDM liner for this patient secondary to the abductor weakness and tears as well as past trauma to the hip. At this time, the 52 mm Tritanium acetabular Terrie cup was impacted into place with roughly 45 degrees of abduction and 20 degrees of anteversion and was found to be properly seated. At this time, the MDM liner was then impacted into place. Attention was turned to the femur. Starter awl was then used and then starting with 0 broach, I was able to broach up to a size 3. Hip was then trialed using a 22.2 and 38 mm MDM components. The hip was then reduced, it was found to be short in length at this time, so we did go up to a size 4 stem in order to gain length at this point. We were able to adequately restore length with a size 4 stem and +2.5 mm head. At this time, the patient's hip was brought through a range of motion and was found to be stable. This was then dislocated. A size 4 Accolade II [place] stem was then impacted into place and the MDM components were then constructed on the back table and then impacted into place on the stem. The hip was then relocated and was found to be stable throughout range of motion. 1 L dilute Betadine solution was then irrigated through the hip along with 3 L of pulse lavage irrigation with Ancef and a periarticular injection was then completed. At this time, there was almost no capsule to repair secondary to the amount of length that we had to make up and previous scar tissue from the previous trauma. A #2 barbed suture was used for closure of the IT band and gluteal fascia, 2-0 Vicryl was used subcutaneously, and Prineo was used for the skin. The patient tolerated the procedure well and was sent to PACU in stable condition. ANESTHESIA: [place] /[id number]
== END 2016-11-20 15:00 | disposition home or self-care (01) | DRG 301 ==
LOC: JD.MS 09:56 → MERGE 12:45 → JD.MS 14:22
PROVIDERS: ADMIT Orthopaedic Surgery; ATTEND Orthopaedic Surgery
PROC: 0SR9019 Replacement of Right Hip Joint with Metal Synthetic Substitute, Cemented, Open Approach (ICD-10-PCS; principal; 2016-11-19)
DX: M16.51 Unilateral post-traumatic osteoarthritis, right hip (principal); T14.90 Injury, unspecified; W19.XXXS Unspecified fall, sequela; H53.8 Other visual disturbances; E78.5 Hyperlipidemia, unspecified; Z79.899 Other long term (current) drug therapy
CPT/HCPCS: 01214; 36415; 73501-26-RT; 73501-RT; 80053; 85025; 86850; 86900; 86901; 87075; 87205; 87641; 94762; 97116-GP; 97161-GP; 97165-GO; 97535-GO; A9270-GY; C1776; J0171; J0690; J0697; J1885; J2250; J2270; J2405; J2704; J3010; J3490; J7050; J7120

== ENCOUNTER 2022-09-13 07:11 | Day surgery (SDC) | payer MEDICARE, OTHER ==
[~2022-09-13 07:11] MED LIST changes: -Acetaminophen/oxyCODONE 325-5 MG Tab PO PRN; -Bisacodyl 5 MG Tab PO PRN; +Lidocaine 1% 2 ML ONE; +Lidocaine 1%/Sod Bicarbonate in NS 8.4% 1 ML Syringe IDERM PRN; -Lidocaine 1%/Sod Bicarbonate in NS 8.4% 1 ML Syringe IV PRN; +Midazolam 1 MG/ML 2 ML SDV ONE; -Morphine 2 MG/ML Syringe IVPUSH PRN; -Ondansetron 4 MG/2 ML SDV IVPUSH PRN; +Ondansetron 4 MG/2 ML SDV ONE; +Propofol 200 MG/20 ML SDV ONE; -Sennosides 8.6 MG Tab PO PRN; +Sodium Chloride 0.9% 10 ML Syringe FLUSH SCH; +fentaNYL 100 MCG/2 ML SDV ONE
[2022-09-13] MEDS ORDERED: Bupivacaine 0.25% 10 ML SDV ONE (07:28)
[2022-09-13] MEDS ORDERED: ceFAZolin 2 GM Vial ONE (08:48)
[2022-09-13] MEDS ORDERED: Phenylephrine HCl In 0.9% NaCl 1 MG/10 ML Vial ONE (09:00)
[2022-09-13] MEDS ORDERED: Acetaminophen/HYDROcodone 325-5 MG Tab PO ONE ×2 (10:42→10:48)
[2022-09-13] MEDS ORDERED: Ketorolac 30 MG/ML SDV IVPUSH ONE (11:12)
[2022-09-13 12:19] VITALS: BP 127/75; PULSE 61
== END 2022-09-13 11:57 | disposition home or self-care (01) ==
LOC: JD.SDS 07:11
PROVIDERS: ATTEND Orthopaedic Surgery
DX: M65.342 Trigger finger, left ring finger (principal); G56.22 Lesion of ulnar nerve, left upper limb; I10 Essential (primary) hypertension; M19.90 Unspecified osteoarthritis, unspecified site; E03.9 Hypothyroidism, unspecified; E78.00 Pure hypercholesterolemia, unspecified; E66.9 Obesity, unspecified; Z98.890 Other specified postprocedural states; Z79.899 Other long term (current) drug therapy
CPT/HCPCS: 26055; 64719; A9270; J0690; J1885; J2250; J2405; J2704; J3010; J3490; J7120; 01810

== ENCOUNTER 2024-07-30 09:41 | Day surgery (SDC) | payer MEDICARE, OTHER ==
[~2024-07-30 09:41] MED LIST changes: -Lactated Ringers 1,000 ML IV SCH; -Lidocaine 1% 2 ML ONE; +Lidocaine 1% 5 ML VIAL ONE; -Lidocaine 1%/Sod Bicarbonate in NS 8.4% 1 ML Syringe IDERM PRN; -Ondansetron 4 MG/2 ML SDV ONE
[2024-07-30] MEDS ORDERED: Lactated Ringers 1,000 ML ONE (10:03)
[2024-07-30] MEDS: Lactated Ringers 1,000 ML IV SCH (10:15)
[2024-07-30] MEDS: oxyCODONE ER 10 MG TAB.ER PO ONE (10:24)
[2024-07-30] MEDS: Pregabalin 25 MG Cap PO ONE (10:24)
[2024-07-30] MEDS: Acetaminophen 325 MG Tab PO ONE (10:25)
[2024-07-30] MEDS ORDERED: ePHEDrine 50 MG/ML SDV ONE (10:27)
[2024-07-30] MEDS ORDERED: Phenylephrine 1% 10 MG/ML SDV ONE (10:28)
[2024-07-30] MEDS ORDERED: ceFAZolin 2 GM Vial ONE (10:29)
[2024-07-30] MEDS ORDERED: Ondansetron 4 MG/2 ML SDV IVPUSH PRN (10:30)
[2024-07-30] MEDS ORDERED: HYDROmorphone 0.5 MG/0.5 ML Syringe IVPUSH PRN (10:30)
[2024-07-30] MEDS ORDERED: droPERidol 5 MG/2 ML SDV IVPUSH PRN (10:30)
[2024-07-30] MEDS ORDERED: fentaNYL 100 MCG/2 ML SDV IVPUSH PRN (10:30)
[2024-07-30] MEDS ORDERED: Ondansetron 4 MG/2 ML SDV ONE (11:13)
[2024-07-30] MEDS ORDERED: Ketamine 200 MG/20 ML MDV ONE (11:32)
[2024-07-30] MEDS ORDERED: Dexamethasone 4 MG/ML 5 ML MDV ONE (11:37)
[2024-07-30] MEDS ORDERED: Ketorolac 15 MG/ML SDV ONE (12:23)
[2024-07-30] MEDS: Morphine 8 MG, EPINEPHrine 0.3 MG, Cefuroxime 750 MG, Ketorolac 30 MG, Sodium Chloride ... PRN (12:37)
[2024-07-30] MEDS: VANCOmycin 1 GM SDV ONE (12:40)
[2024-07-30] MEDS: Tranexamic Acid 1,000 MG/10 ML Vial ONE (12:40)
[2024-07-30 15:55] VITALS: BP 118/77; PULSE 79
== END 2024-07-30 16:24 | disposition home or self-care (01) ==
LOC: JD.SDS 09:41
PROVIDERS: ATTEND Orthopaedic Surgery
DX: M16.12 Unilateral primary osteoarthritis, left hip (principal); E78.2 Mixed hyperlipidemia; Z79.899 Other long term (current) drug therapy
CPT/HCPCS: 73501-26-LT; 73501-LT; 97116-GP; 97161-GP; A9270-GY; J0171; J0690; J0697; J1100; J1885; J2250; J2272; J2371; J2405; J2704; J3010; J3490; J7120